=== PATIENT | female | born 2000 | race Caucasian/White ===

== ENCOUNTER → 2019-04-21 | Outpatient (CLI) | payer MEDICAID ==
--- NOTE | 2019-04-21 13:49 | Diagnostic Imaging Report ---
INDICATION: RIGHT ANKLE PAIN COMPARISON: None. FINDINGS: Three views of the right ankle were obtained. There is no acute fracture or dislocation. No focal osseous lesions are seen. The surrounding soft tissue structures are unremarkable. There are no radiopaque foreign bodies. IMPRESSION: 1. No acute fracture or dislocation in the right ankle. Dictated by: Dictated on workstation # [id number]
== END ==
LOC: RAD FS 13:32
PROVIDERS: ATTEND Nurse Practitioner
DX: M25.571 Pain in right ankle and joints of right foot (principal)
CPT/HCPCS: 73610

== ENCOUNTER 2019-07-24 15:31 | Emergency (ER) | payer MEDICAID ==
[~2019-07-24] VITALS: Ht 167.7 cm; Wt 52.3 kg
[2019-07-24] MEDS ORDERED: LACTATED RINGERS 1,000 ML IV ONE (15:41)
[2019-07-24] MEDS ORDERED: FAMOTIDINE 20 MG (PEPCID) TABLET PO STA (15:41)
[2019-07-24] MEDS ORDERED: ANTACID SUSP 30 ML UDC (MYLANTA) PO ONE (15:45)
[2019-07-24] MEDS ORDERED: LIDOCAINE 2% VISCOUS 15 ML UDC PO ONE (15:45)
--- NOTE | 2019-07-24 15:47 | ED Abdominal Pain ---
General Chief Complaint: Abdominal/GI Problems Stated Complaint: STOMACH PAIN Source of Information: Patient, Family Exam Limitations: No Limitations History of Present Illness Date Seen by Provider: Jul 24, 2019 Time Seen by Provider: 15:32 Initial Comments The patient presents to ER by private conveyance with her family and chief com plaint of abdominal pain starting last night while she was laying down to sleep around 10:00. She did not anything strenuous nor had any trauma to her abdomen. She has been coughing quite a bit and a few weeks ago was started on some albuterol and other cough medicines outpatient. She's not having any nausea fevers or chills. No diarrhea and she had a bowel movement yesterday was normal. She says it center is mostly around her umbilicus and is sharp, 10 out of 10 feels like somebody shot her with a gun. She is not having any painful urination or discharge. She has had her gallbladder and appendix out in the past. She has an IUD in place and no longer has periods. No other significant medical or surgical history. She took 400 mg of ibuprofen about 5 hours ago without any significant relief of symptoms. She has not tried anything else. Allergies and Home Medications Allergies Coded Allergies: hydrocodone (Verified Allergy, Unknown, 07/24/19) Home Medications Benzonatate 100 Mg Capsule, 100 MG PO Q6H PRN for COUGH Prescribed by: FRANCIS ALEXANDRE on 07/24/19 7287 Patient Home Medication List Home Medication List Reviewed: Yes Review of Systems Review of Systems Constitutional: No chills, No diaphoresis EENTM: No Blurred Vision, No Double Vision Respiratory: Denies Cough, Denies Shortness of Air Cardiovascular: Denies Chest Pain, Denies Edema Gastrointestinal: See HPI; Denies Abdomen Distended; Abdominal Pain; Denies Constipated, Denies Diarrhea, Denies Nausea Genitourinary: Denies Burning, Denies Discharge Musculoskeletal: No back pain, No joint pain Skin: No pruritus, No rash Psychiatric/Neurological: Denies Headache, Denies Numbness All Other Systems Reviewed Negative Unless Noted: Yes Past Sspxxdh-Klotam-Zazacb Hx Patient Social History Alcohol Use: Denies Use Recreational Drug Use: No Smoking Status: Never a Smoker Physical Exam Vital Signs Vital Signs - First Documented 07/24/19 15:35 Temp 37.2 Pulse 90 Resp 14 B/P (MAP) 131/73 (92) Pulse Ox 98 O2 Delivery Room Air Capillary Refill : Height/Weight/BMI Height: '" Weight: lbs. oz. kg; BMI Method: General Appearance: WD/WN, mild distress HEENT: PERRL/EOMI, pharynx normal Neck: full range of motion, normal inspection Respiratory: lungs clear, normal breath sounds, no respiratory distress, no accessory muscle use Cardiovascular: normal peripheral pulses, regular rate, rhythm Gastrointestinal: normal bowel sounds, guarding, tenderness (all 4 quadrants) Extremities: normal inspection, normal capillary refill Neurologic/Psychiatric: alert, oriented x 3 Skin: normal color, warm/dry Progress/Results/Core Measures Results/Orders Lab Results Laboratory Tests Test 07/24/19 15:35 07/24/19 15:40 Range/Units Urine Color YELLOW Urine Clarity CLEAR Urine pH 7.5 5-9 Urine Specific [place] 1.015 L 1.016-1.022 Urine Protein NEGATIVE NEGATIVE Urine Glucose (UA) NEGATIVE NEGATIVE Urine Ketones NEGATIVE NEGATIVE Urine Nitrite NEGATIVE NEGATIVE Urine Bilirubin NEGATIVE NEGATIVE Urine Urobilinogen 1.0 < = 1.0 MG/DL Urine Leukocyte Esterase NEGATIVE NEGATIVE Urine RBC (Auto) NEGATIVE NEGATIVE Urine RBC NONE /HPF Urine WBC 0-2 /HPF Urine Squamous Epithelial Cells 5-10 /HPF Urine Crystals NONE /LPF Urine Bacteria NEGATIVE /HPF Urine Casts NONE /LPF Urine Mucus NEGATIVE /LPF Urine Culture Indicated NO White Blood Count 11.2 H 4.3-11.0 10^3/uL Red Blood Count 4.45 4.35-5.85 10^6/uL Hemoglobin 13.9 11.5-16.0 G/DL Hematocrit 41 35-52 % Mean Corpuscular Volume 92 80-99 FL Mean Corpuscular Hemoglobin 31 25-34 PG Mean Corpuscular Hemoglobin Concent 34 32-36 G/DL Red Cell Distribution Width 11.8 10.0-14.5 % Platelet Count 235 130-400 10^3/uL Mean Platelet Volume 11.6 H 7.4-10.4 FL Neutrophils (%) (Auto) 71 42-75 % Lymphocytes (%) (Auto) 19 12-44 % Monocytes (%) (Auto) 9 0-12 % Eosinophils (%) (Auto) 1 0-10 % Basophils (%) (Auto) 0 0-10 % Neutrophils # (Auto) 8.0 H 1.8-7.8 X 10^3 Lymphocytes # (Auto) 2.1 1.0-4.0 X 10^3 Monocytes # (Auto) 1.0 0.0-1.0 X 10^3 Eosinophils # (Auto) 0.1 0.0-0.3 10^3/uL Basophils # (Auto) 0.0 0.0-0.1 10^3/uL Sodium Level 139 135-145 MMOL/L Potassium Level 3.7 3.6-5.0 MMOL/L Chloride Level 101 98-107 MMOL/L Carbon Dioxide Level 28 21-32 MMOL/L Anion Gap 10 5-14 MMOL/L Blood Urea Nitrogen 10 7-18 MG/DL Creatinine 0.84 0.60-1.30 MG/DL Estimat Glomerular Filtration Rate > 60 BUN/Creatinine Ratio 12 Glucose Level 86 70-105 MG/DL Calcium Level 9.3 8.5-10.1 MG/DL Corrected Calcium 8.5-10.1 MG/DL Total Bilirubin 0.7 0.1-1.0 MG/DL Aspartate Amino Transf (AST/SGOT) 16 5-34 U/L Alanine Aminotransferase (ALT/SGPT) 12 0-55 U/L Alkaline Phosphatase 79 40-136 U/L Total Protein 8.1 6.4-8.2 GM/DL Albumin 4.6 H 3.2-4.5 GM/DL Lipase 30 8-78 U/L My Orders Orders - FRANCIS ALEXANDRE Ua Culture If Indicated (07/24/19 15:32) Urine Bedside (07/24/19 15:32) Lidocaine 2% Viscous 15 Ml (Xylocaine Vi (07/24/19 15:45) Famotidine Tablet (Pepcid Tablet) (07/24/19 15:41) Antacid Suspension (Mylanta Suspension (07/24/19 15:45) Ed Iv/Invasive Line Start (07/24/19 15:41) Lactated Ringers (Lr 1000 Ml Iv Solution (07/24/19 15:41) Cbc With Automated Diff (07/24/19 15:41) Comprehensive Metabolic Panel (07/24/19 15:41) Lipase (07/24/19 15:41) Ketorolac Injection (Toradol Injection) (07/24/19 16:30) Chest Pa/Lat (2 View) (07/24/19 16:29) Medications Given in ED Current Medications Medications Dose Ordered Sig/Venkata Route Start Time Stop Time Status Last Admin Dose Admin Al Hydrox/Mg Hydrox/Simethicone 30 ml ONCE ONCE PO 07/24/19 15:45 07/24/19 15:46 DC 07/24/19 15:49 30 ML Ketorolac Tromethamine 30 mg ONCE ONCE IVP 07/24/19 16:30 07/24/19 16:31 DC 07/24/19 16:26 30 MG Lactated Ringer's 1,000 ml @ 0 mls/hr Q0M ONCE IV 07/24/19 15:41 07/24/19 15:43 DC 07/24/19 15:50 999 MLS/HR Lidocaine HCl 15 ml ONCE ONCE PO 07/24/19 15:45 07/24/19 15:46 DC 07/24/19 15:49 15 ML Vital Signs/I&O 07/24/19 07/24/19 07/24/19 15:35 16:26 17:38 Temp 37.2 37.2 37.1 Pulse 90 87 Resp 14 16 B/P (MAP) 131/73 (92) 97/64 (92) Pulse Ox 98 97 O2 Delivery Room Air Room Air Progress Progress Note #1: Time: 15:45 Progress Note Gastroenteritis versus colitis versus pancreatitis versus gastritis versus GERD versus abdominal wall strain. We'll start with a GI cocktail get some basic labs to include a lipase and urinalysis and if the GI cocktail does not work we'll trial Toradol. She has aseptic vital signs within acutely tender abdomen all 4 quadrants so if we cannot control her pain with a GI cocktail we would consider doing CT imaging with IV contrast. Therefore 1 L of IV fluids. Progress Note #2: Time: 16:23 Progress Note GI cocktail made no difference in her pain. We'll try Toradol. She has a nonsignificant white count. Abdominal wall pain seems more likely at this point with her aseptic vital signs and frequent loose cough. Progress Note #3: Time: 17:05 Progress Note Patient's pain significantly improved after Toradol. Suspect abdominal wall pain. We'll provide her with some Tessalon Perles and encourage naproxen/ibuprofen. Diagnostic Imaging Diagonstic Imaging: Xray Plain Films/CT/US/NM/MRI: chest (2v) Comments No acute cardiopulmonary processes noted. NAME: JENNY SCHRADER [facility] REC#: [id number] PT STATUS: REG ER : 2000 PHYSICIAN: FRANCIS ALEXANDRE MD ADMIT DATE: 07/24/19/ER FS Draft POSDate of Exam:07/24/19 CHEST PA/LAT (2 VIEW) INDICATION: Abdominal pain, cough. COMPARISON: None available. TECHNIQUE: Two radiographs of the chest dated July 24, 2019. FINDINGS: The cardiac silhouette and pulmonary vasculature are within normal limits. The lungs are clear. No pleural effusion. No pneumothorax. Surgical clips within the right upper quadrant of the abdomen. No acute osseous abnormality. IMPRESSION: No acute cardiopulmonary abnormality. Dictated on workstation # [id number] Dict: 07/24/19 1650 Trans: 07/24/19 165 [id number] Interpreted by: ANIRUDH CH MD Electronically signed by: Reviewed: Reviewed by Me Departure Impression Primary Impression: Abdominal wall pain Additional Impression: Bronchitis Disposition: 01 HOME, SELF-CARE Condition: Stable Departure-Patient Inst. Decision time for Depature: 17:10 Referrals: NO,LOCAL PHYSICIAN (PCP/Family) Primary Care Physician Patient Instructions: Acute Abdomen (Belly Pain), Adult (DC), Acute Bronchitis Add. Discharge Instructions: Drink plenty of fluids. Tylenol 1000 mg every 8 hours as needed for pain. Ibuprofen 800 mg every 8 hours as needed for pain. Heating pads can be helpful. Tessalon Perles 1 capsule every 6 hours as needed for cough. All discharge instructions reviewed with patient and/or family. Voiced understanding. Scripts Benzonatate (TESSALON PERLES) 100 Mg Capsule 100 MG PO Q6H PRN for COUGH, #20 CAP 0 Refills Prov: FRANCIS ALEXANDRE 07/24/19 FRANCIS ALEXANDRE Jul 24, 2019 15:47 POS
--- NOTE | 2019-07-24 16:15 | NUR ---
Discussed with Dr Javier patient has been displaying a loose near wet sounding cough intermittantly and reports she has had bronchitis since before Thanksgiving. Pt describes yes it hurts in abd from coughing. plans pain medication and will CXR
[2019-07-24 16:18] LABS: CLARITY,URINE CLEAR; COLOR,URINE YELLOW; GLUCOSE, URINE (UA) NEGATIVE (NEGATIVE); KETONES,URINE NEGATIVE (NEGATIVE); PH,URINE 7.5 (5-9); PROTEIN,URINE NEGATIVE (NEGATIVE)
[2019-07-24 16:19] LABS: BACTERIA,URINE NEGATIVE /HPF; BILIRUBIN,URINE NEGATIVE (NEGATIVE); LEUKOCYTE ESTERASE ,URINE NEGATIVE (NEGATIVE); NITRITE,URINE NEGATIVE (NEGATIVE); WBC,URINE 0-2 /HPF
[2019-07-24 16:20] LABS: BASOPHILS % (AUTO) 0 % (0-10); EOSINOPHILS # (AUTO) 0.1 10^3/uL (0.0-0.3); EOSINOPHILS % (AUTO) 1 % (0-10); HEMATOCRIT 41 % (35-52); HEMOGLOBIN 13.9 G/DL (11.5-16.0); LYMPHOCYTES # (AUTO) 2.1 X 10^3 (1.0-4.0); LYMPHOCYTES % (AUTO) 19 % (12-44); MEAN CORPUSCULAR HEMOGLOBIN 31 PG (25-34); MEAN CORPUSCULAR HGB CONC 34 G/DL (32-36); MEAN CORPUSCULAR VOLUME 92 FL (80-99); MEAN PLATELET VOLUME 11.6 FL (7.4-10.4); MONOCYTES % (AUTO) 9 % (0-12); NEUTROPHILS % (AUTO) 71 % (42-75); PLATELET COUNT 235 10^3/uL (130-400); RED CELL DISTRIBUTION WIDTH 11.8 % (10.0-14.5); WHITE BLOOD COUNT 11.2 10^3/uL (4.3-11.0)
[2019-07-24 16:21] LABS: BILIRUBIN,TOTAL 0.7 MG/DL (0.1-1.0); BUN/CREATININE RATIO 12; CALCIUM 9.3 MG/DL (8.5-10.1); CARBON DIOXIDE 28 MMOL/L (21-32); CHLORIDE 101 MMOL/L (98-107); CREATININE SERUM 0.84 MG/DL (0.60-1.30); GFR ESTIMATED > 60; GLUCOSE 86 MG/DL (70-105); POTASSIUM 3.7 MMOL/L (3.6-5.0); SODIUM 139 MMOL/L (135-145)
[2019-07-24 16:22] LABS: ALANINE AMINOTRANSFERASE 12 U/L (0-55); ALBUMIN 4.6 GM/DL (3.2-4.5); ALKALINE PHOSPHATASE 79 U/L (40-136); LIPASE 30 U/L (8-78); TOTAL PROTEIN 8.1 GM/DL (6.4-8.2)
[2019-07-24] MEDS ORDERED: KETOROLAC 30 MG/ML VIAL IVP ONE (16:30)
[2019-07-24] MEDS ORDERED: BENZ100C18 PO (16:47)
--- NOTE | 2019-07-24 16:54 | Diagnostic Imaging Report ---
INDICATION: Abdominal pain, cough. COMPARISON: None available. TECHNIQUE: Two radiographs of the chest dated July 24, 2019. FINDINGS: The cardiac silhouette and pulmonary vasculature are within normal limits. The lungs are clear. No pleural effusion. No pneumothorax. Surgical clips within the right upper quadrant of the abdomen. No acute osseous abnormality. IMPRESSION: No acute cardiopulmonary abnormality. Dictated by: Dictated on workstation # [id number]
[2019-07-24 17:38] VITALS: BP 97/64
--- OUTSIDE RECORDS SUMMARY | 2019-08-18 21:13 | XMS REPORT | Continuity of Care Document ---
Author Organization Unknown Address Unknown Phone Unavailable Allergies Active Description Code Type Severity Reaction Onset Reported/Identified Relationship to Patient Clinical Status Yes hydrocodone [id number] Drug Aller gy Unknown N/A 07/24/2019 Yes No Known Drug Allergies [id number] Drug Allergy Unknown N/A 07/24/2019 Medications There is no data. Problems Date Dx Coded Attending Type Code Diagnosis Diagnosed By 07/27/2019 FRANCIS ALEXANDRE MD, Ot J40 BRONCHITIS, NOT SPECIFIED ACUTE OR CH 07/27/2019 FRANCIS ALEXANDRE MD Ot R10. 33 PERIUMBILICAL PAIN 07/27/2019 FRANCIS ALEXANDRE MD Ot Z88. 5 ALLERGY STATUS TO NARCOTIC AGENT STATUS 07/27/2019 FRANCIS ALEXANDRE MD Ot Z90. 49 ACQUIRED ABSENCE OF OTHER SPECIFIED PART Procedures There is no data. Results Test Result Range HCG, QUANTITATIVE - 01/24/19 12:54 HCG, TOTAL, QN <2 mIU/mL NRG Complete urinalysis with reflex to cultu re - 07/24/19 15:35 Urine color determination YELLOW NRG Urine clarity determination CLEAR NR G Urine pH measurement by test strip 7.5 5-9 Specific gravity of urine by test strip 1.015 1.016-1.022 Urine protein assay by test strip, semi-quantitative NEGATIVE NEGATIVE Urine glucose detection by automated test strip NE GATIVE NEGATIVE Erythrocytes detection in urine sediment by light micr oscopy NEGATIVE NEGATIVE Urine ketones detection by automated test strip NE GATIVE NEGATIVE Urine nitrite detection by test strip NEGATIVE NEGATIVE Urine total bilirubin detection by test strip NEGA TIVE NEGATIVE Urine urobilinogen measurement by automated test strip (mass/volume) 1.0 mg/dL < = 1.0 Urine leukocyte esterase detection by dipstick NEG ATIVE NEGATIVE Automated urine sediment erythrocyte cou nt by microscopy (number/high power field) NONE NRG Automated urine sediment leukocyte count by microscopy (number/high power field) [HPF] NRG Bacteria detection in urine sediment by light microsco py NEGATIVE NRG Squamous epithelial cells detection in u rine sediment by light microscopy 5-10 NRG Crystals detection in urine sediment by light microsco py NONE NRG Casts detection in urine sediment by light microscopy NONE NRG Mucus detection in urine sediment by light microscopy NEGATIVE NRG Complete urinalysis with reflex to culture NO NRG Complete blood count (CBC) with automate d white blood cell (WBC) differential - 07/24/19 15:40 Blood leukocytes automated count (number/volume) 11.2 10*3/uL 4.3-11.0 Blood erythrocytes automated count (number/volume) 4.45 10*6/uL 4.35-5.85 Venous blood hemoglobin measurement (mass/volume) 13.9 g/dL 11.5-16.0 Blood hematocrit (volume fraction) 41 % 35-52 Automated erythrocyte mean corpuscular volume 92 [ foz_us] 80-99 Automated erythrocyte mean corpuscular h emoglobin (mass per erythrocyte) 31 pg 25-34 Automated erythrocyte mean corpuscular h emoglobin concentration measurement (mass/volume) 34 g/dL 32-36 Automated erythrocyte distribution width ratio 11. 8 % 10.0- 14.5 Automated blood platelet count (count/volume) 235 10*3/uL 130-400 Automated blood platelet mean volume measurement 11.6 [foz_us] 7.4-10.4 Automated blood neutrophils/100 leukocytes 71 % 42-75 Automated blood lymphocytes/100 leukocytes 19 % 12-44 Blood monocytes/100 leukocytes 9 % 0-12 Automated blood eosinophils/100 leukocytes 1 % 0-10 Automated blood basophils/100 leukocytes 0 % 0-10 Blood neutrophils automated count (number/volume) 8.0 10*3 1.8-7.8 Blood lymphocytes automated count (number/volume) 2.1 10*3 1.0-4.0 Blood monocytes automated count (number/volume) 1. 0 10*3 0.0-1.0 Automated eosinophil count 0.1 10*3/uL 0 .0-0.3 Automated blood basophil count (count/volume) 0.0 10*3/uL 0.0-0.1 Comprehensive metabolic panel - 07/24/19 15:40 Serum or plasma sodium measurement (moles/volume) 139 mmol/L 135-145 Serum or plasma potassium measurement (moles/volume) 3.7 mmol/L 3.6-5.0 Serum or plasma chloride measurement (moles/volume) 101 mmol/L 98-107 Carbon dioxide 28 mmol/L 21-32 Serum or plasma anion gap determination (moles/volume) 10 mmol/L 5-14 Serum or plasma urea nitrogen measurement (mass/volume ) 10 mg/dL 7-18 Serum or plasma creatinine measurement (mass/volume) 0.84 mg/dL 0.60-1.30 Serum or plasma urea nitrogen/creatinine mass ratio 12 NRG Serum or plasma creatinine measurement w ith calculation of estimated glomerular filtration rate > NRG Serum or plasma glucose measurement (mass/volume) 86 mg/dL 70-105 Serum or plasma calcium measurement (mass/volume) 9.3 mg/dL 8.5-10.1 Serum or plasma total bilirubin measurement (mass/volu me) 0.7 mg/dL 0.1-1.0 Serum or plasma alkaline phosphatase martha surement (enzymatic activity/volume) 79 U/L 40-136 Serum or plasma aspartate aminotransfera se measurement (enzymatic activity/volume) 16 U/L 5-34 Serum or plasma alanine aminotransferase measurement (enzymatic activity/volume) 12 U/L 0-55 Serum or plasma protein measurement (mass/volume) 8.1 g/dL 6.4-8.2 Serum or plasma albumin measurement (mass/volume) 4.6 g/dL 3.2-4.5 Lipase - 07/24/19 15:40 Lipase 30 U/L 8-78 Encounters ACCT No. Visit Date/Time Discharge Status Pt. Type Provider Facility Loc./Unit Complaint [id number] 08/02/2019 13:00:00 08/02/2019 23:59: 59 CLS Outpatient DEWEY LOPEZ [facility] [id number] 01/24/2019 12:45:00 Document Registration [id number] 07/24/2019 15:32:00 17:38:00 DIS Outpatient FRANCIS ALEXANDRE MD [facility] ER FS STOMACH PAIN [id number] 04/21/2019 13:32:00 019 23:59:59 CLS Outpatient GOKUL BELLO APRN [facility] RAD FS [phone]
== END 2019-07-24 17:38 | disposition home or self-care (01) ==
LOC: EDUNIT# 15:31 → ER FS 15:32
DX: R10.33 Periumbilical pain (principal); J40 Bronchitis, not specified as acute or chronic; Z90.49 Acquired absence of other specified parts of digestive tract; Z88.5 Allergy status to narcotic agent
CPT/HCPCS: 36415; 71046; 80053; 81000; 83690; 84703; 85025; 96374

== ENCOUNTER → 2019-10-10 | Outpatient (CLI) | payer MEDICAID ==
[~2019-10-10] MED LIST: BENZ100C18 PO
--- NOTE | 2019-10-10 14:37 | Diagnostic Imaging Report ---
INDICATION: Left-sided flank pain. TIME OF EXAM: 01:32 p.m. FINDINGS: Bowel gas pattern is nonobstructive. There is moderate stool in the right colon and transverse colon. There are surgical clips in the right lower quadrant as well as right upper quadrant. IUD in the midline of the pelvis is seen. No definite radiopaque urinary tract calculi are seen. IMPRESSION: No acute abnormality is detected. Dictated by: Dictated on workstation # [id number]
== END ==
LOC: RAD FS 13:23
PROVIDERS: ATTEND Nurse Practitioner Family
DX: R11.10 Vomiting, unspecified (principal); R53.83 Other fatigue; R10.9 Unspecified abdominal pain
CPT/HCPCS: 74018

== ENCOUNTER → 2020-03-01 | Outpatient (CLI) | payer MEDICAID ==
--- NOTE | 2020-03-01 13:11 | Diagnostic Imaging Report ---
INDICATION: Right-sided flank pain. Back pain. COMPARISON: 10/10/2019. FINDINGS: Two frontal radiographic views of the abdomen were obtained. Small bowel loops are nondistended. There is no large collection of free intraperitoneal air. Mild colonic air and stool is noted. Indwelling IUD is also present. No unexpected radiopaque foreign bodies are seen. IMPRESSION: 1. Nonobstructed small bowel gas pattern. Dictated by: Dictated on workstation # [id number]
== END ==
LOC: RAD FS 11:57
PROVIDERS: ATTEND Nurse Practitioner Family
DX: R10.9 Unspecified abdominal pain (principal); M54.9 Dorsalgia, unspecified; Z97.5 Presence of (intrauterine) contraceptive device
CPT/HCPCS: 74018

== ENCOUNTER 2021-01-18 01:57 | Emergency (ER) | payer MEDICAID ==
[2021-01-18 01:57] VITALS: BP 120/82
[2021-01-18] MEDS ORDERED: ACETAMINOPHEN 500 MG TAB (TYLENOL) PO STA (02:05)
[2021-01-18] MEDS ORDERED: NS IV 1000 ML 1,000 ML IV STA (02:05)
--- NOTE | 2021-01-18 02:12 | ED General ---
General Chief Complaint: Back Problems Stated Complaint: BILATERAL FLANK PAIN Nursing Triage Note: Pt brought in by ems complaining of bilateral flank pain. Pt states that she is 4 weeks Nursing Sepsis Screen: No Definite Risk Source of Information: Patient History of Present Illness Date Seen by Provider: Jan 18, 2021 Time Seen by Provider: 01:54 Initial Comments 21-year-old female presenting with EMS having complaints of low back pain. She states that she is approximately 4 weeks but cannot remember her last menstrual period. she has no vaginal bleeding or discharge. She has no diarrhea, nausea, vomiting, fever, chills. She has had pain in her back like this with her last 2 years ago and it improved when she was given IV fluids and Tylenol. She states she has tried speaking with nurse practitioner Karthik and was told to take Tylenol for her symptoms. She reports not having access to Tylenol and not having a car or vehicle to go by Tylenol. Tonight she felt her symptoms were severe enough after a week of being present that she call ed 911 and had EMS transport her and her significant other to the emergency department. Timing/Duration: 1 Week, Other (Waxing and waning in intensity over the last week) Severity: Severe Modifying Factors: worse with Movement Associated Systoms: No Chest Pain, No Cough, No Diaphoresis, No Fever/Chills, No Headaches, No Loss of Appetite, No Malaise, No Nausea/Vomiting, No Rash, No Seizure, No Shortness of Air, No Syncope, No Weakness Allergies and Home Medications Allergies Coded Allergies: hydrocodone (Verified Allergy, Unknown, 07/24/19) Home Medications Benzonatate 100 Mg Capsule, 100 MG PO Q6H PRN for COUGH Prescribed by: FRANCIS ALEXANDRE on 07/24/19 1647 Cephalexin 500 Mg Capsule, 500 MG PO TID Prescribed by: MITESH DEAN on 01/18/21 0320 Patient Home Medication List Home Medication List Reviewed: Yes Review of Systems Review of Systems Constitutional: No chills, No fever EENTM: no symptoms reported Respiratory: no symptoms reported Cardiovascular: no symptoms reported Gastrointestinal: see HPI Genitourinary: No discharge, No pain : Yes Musculoskeletal: back pain (low back pain) Skin: No rash Psychiatric/Neurological: Denies Numbness, Denies Paresthesia Hematologic/Lymphatic: Denies Easy Bleeding, Denies Easy Bruising Past Bpnozuv-Ppsqsp-Cvjldw Hx Past Med/Social Hx: Reviewed Nursing Past Med/Soc Hx Patient Social History Alcohol Use: Denies Use Recent Infectious Disease Expo: No Recent Hopitalizations: No Immunizations Up To Date PED Vaccines UTD: Yes Date of Influenza Vaccine: Apr 30, 2019 Seasonal Allergies Seasonal Allergies: No Past Medical History Surgeries: Yes Appendectomy, Gallbladder Respiratory: No Cardiac: No Neurological: No Genitourinary: No Gastrointestinal: No Musculoskeletal: No Endocrine: No HEENT: No Cancer: No Psychosocial: No Integumentary: No Blood Disorders: No Physical Exam Vital Signs Vital Signs - First Documented 01/18/21 01:57 Temp 37.3 Pulse 97 Resp 16 B/P (MAP) 120/82 (95) Pulse Ox 98 O2 Delivery Room Air Capillary Refill : Less Than 3 Seconds Height, Weight, BMI Height: '" Weight: lbs. oz. 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, 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 as 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 Skin: Normal Color, Warm/Dry Progress/Results/Core Measures Suspected Sepsis Recent Fever Within 48 Hours: No Infection Criteria Present: None New/Unexplained Altered Menta: No Sepsis Screen: No Definite Risk SIRS Temperature: Pulse: 97 Respiratory Rate: 16 Laboratory Tests 01/18/21 02:20: White Blood Count 12.0H Blood Pressure 120 /82 Mean: 95 Laboratory Tests 01/18/21 02:20: Creatinine 0.85, Platelet Count 237, Total Bilirubin 0.5 Results/Orders Lab Results Laboratory Tests Test 01/18/21 02:10 01/18/21 02:20 Range/Units Urine Color YELLOW Urine Clarity CLEAR Urine pH 6.5 5-9 Urine Specific [place] 1.020 1.016-1.022 Urine Protein TRACE H NEGATIVE Urine Glucose (UA) NEGATIVE NEGATIVE Urine Ketones NEGATIVE NEGATIVE Urine Nitrite NEGATIVE NEGATIVE Urine Bilirubin NEGATIVE NEGATIVE Urine Urobilinogen 0.2 < = 1.0 MG/DL Urine Leukocyte Esterase 1+ H NEGATIVE Urine RBC (Auto) TRACE H NEGATIVE Urine RBC RARE /HPF Urine WBC 25-50 H /HPF Urine Squamous Epithelial Cells RARE /HPF Urine Crystals NONE /LPF Urine Bacteria FEW H /HPF Urine Casts NONE /LPF Urine Mucus MODERATE H /LPF Urine Culture Indicated YES White Blood Count 12.0 H 4.3-11.0 10^3/uL Red Blood Count 4.31 L 4.35-5.85 10^6/uL Hemoglobin 13.6 11.5-16.0 G/DL Hematocrit 40 35-52 % Mean Corpuscular Volume 93 80-99 FL Mean Corpuscular Hemoglobin 32 25-34 PG Mean Corpuscular Hemoglobin Concent 34 32-36 G/DL Red Cell Distribution Width 11.8 10.0-14.5 % Platelet Count 237 130-400 10^3/uL Mean Platelet Volume 11.2 H 7.4-10.4 FL Immature Granulocyte % (Auto) 0 % Neutrophils (%) (Auto) 73 42-75 % Lymphocytes (%) (Auto) 17 12-44 % Monocytes (%) (Auto) 9 0-12 % Eosinophils (%) (Auto) 1 0-10 % Basophils (%) (Auto) 0 0-10 % Neutrophils # (Auto) 8.7 H 1.8-7.8 X 10^3 Lymphocytes # (Auto) 2.0 1.0-4.0 X 10^3 Monocytes # (Auto) 1.1 H 0.0-1.0 X 10^3 Eosinophils # (Auto) 0.1 0.0-0.3 10^3/uL Basophils # (Auto) 0.0 0.0-0.1 10^3/uL Immature Granulocyte # (Auto) 0.1 0.0-0.1 10^3/uL Percent Immature Platelet Fraction 6.3 0.0-7.6 % Sodium Level 136 135-145 MMOL/L Potassium Level 3.9 3.6-5.0 MMOL/L Chloride Level 98 98-107 MMOL/L Carbon Dioxide Level 26 21-32 MMOL/L Anion Gap 12 5-14 MMOL/L Blood Urea Nitrogen 12 7-18 MG/DL Creatinine 0.85 0.60-1.30 MG/DL Estimat Glomerular Filtration Rate > 60 BUN/Creatinine Ratio 14 Glucose Level 110 H 70-105 MG/DL Calcium Level 9.2 8.5-10.1 MG/DL Corrected Calcium 9.0 8.5-10.1 MG/DL Total Bilirubin 0.5 0.1-1.0 MG/DL Aspartate Amino Transf (AST/SGOT) 11 5-34 U/L Alanine Aminotransferase (ALT/SGPT) 8 0-55 U/L Alkaline Phosphatase 72 40-136 U/L Total Protein 7.6 6.4-8.2 GM/DL Albumin 4.2 3.2-4.5 GM/DL Human Chorionic Gonadotropin, Quant 2436 H <5 MIU/ML My Orders Orders - MITESH DEAN MD Comprehensive Metabolic Panel (01/18/21 02:05) Ua Culture If Indicated (01/18/21 02:05) Ed Iv/Invasive Line Start (01/18/21 02:05) Cbc With Automated Diff (01/18/21 02:05) Hcg,Quantitative (01/18/21 02:05) Ns Iv 1000 Ml (Sodium Chloride 0.9%) (01/18/21 02:05) Acetaminophen Tablet (Tylenol Tablet) (01/18/21 02:05) Urine Culture (01/18/21 02:10) Ceftriaxone For Iv Use (Rocephin For I (01/18/21 03:16) Vital Signs/I&O 01/18/21 01:57 Temp 37.3 Pulse 97 Resp 16 B/P (MAP) 120/82 (95) Pulse Ox 98 O2 Delivery Room Air Capillary Refill : Less Than 3 Seconds Blood Pressure Mean: 95 Progress Note #1: Progress Note check basic labs, give IVF for hydration, Acetaminophen for pain. Differential diagnosis includes dehydration, urinary tract infection, round ligament pain with , musculoskeletal pain, muscle strain Progress Note #2: Progress Note labs show mild elevation of WBC. Chemistry without acute significant abnormality. Quantitative HCG 2436. UA shows infection with specific gravity of 1.020. Treat with rocephin here and keflex at home. Pt reports improved symptoms with treatment in the ED. Counseled on follow up and return precautions. Departure Impression Primary Impression: Low back pain during in first trimester Additional Impressions: , incidental UTI (urinary tract infection) in in first trimester Disposition: 01 HOME, SELF-CARE Condition: Stable Departure-Patient Inst. Decision time for Depature: 03:20 Referrals: [facility] (PCP) Primary Care Physician JOLANTA CAMPBELL APRN (Family) Primary Care Physician Patient Instructions: Stomach Pain in Early , Urinary Tract Infections in Add. Discharge Instructions: Stay well hydrated and drink plenty of water. Take antibiotic to treat for urine infection. Acetaminophen for pain. Check with your provider for your about continued symptoms/concerns. All discharge instructions reviewed with patient and/or family. Voiced understanding. Scripts Cephalexin (Cephalexin) 500 Mg Capsule 500 MG PO TID for UTI for 7 Days, #21 CAP 0 Refills Prov: MITESH DEAN MD 01/18/21 MITESH DEAN MD Jan 18, 2021 02:12
[2021-01-18 02:40] LABS: HEMATOCRIT 40 % (35-52); HEMOGLOBIN 13.6 G/DL (11.5-16.0); MEAN CORPUSCULAR HEMOGLOBIN 32 PG (25-34); MEAN CORPUSCULAR HGB CONC 34 G/DL (32-36); MEAN CORPUSCULAR VOLUME 93 FL (80-99); MEAN PLATELET VOLUME 11.2 FL (7.4-10.4); PLATELET COUNT 237 10^3/uL (130-400)
[2021-01-18 02:41] LABS: BASOPHILS % (AUTO) 0 % (0-10); EOSINOPHILS # (AUTO) 0.1 10^3/uL (0.0-0.3); EOSINOPHILS % (AUTO) 1 % (0-10); LYMPHOCYTES % (AUTO) 17 % (12-44); MONOCYTES # (AUTO) 1.1 X 10^3 (0.0-1.0); MONOCYTES % (AUTO) 9 % (0-12); NEUTROPHILS # (AUTO) 8.7 X 10^3 (1.8-7.8); NEUTROPHILS % (AUTO) 73 % (42-75)
[2021-01-18 02:51] LABS: CARBON DIOXIDE 26 MMOL/L (21-32); CHLORIDE 98 MMOL/L (98-107); POTASSIUM 3.9 MMOL/L (3.6-5.0); SODIUM 136 MMOL/L (135-145)
[2021-01-18 02:52] LABS: ALANINE AMINOTRANSFERASE 8 U/L (0-55); ALBUMIN 4.2 GM/DL (3.2-4.5); ALKALINE PHOSPHATASE 72 U/L (40-136); BILIRUBIN,TOTAL 0.5 MG/DL (0.1-1.0); BUN/CREATININE RATIO 14; CALCIUM 9.2 MG/DL (8.5-10.1); CREATININE SERUM 0.85 MG/DL (0.60-1.30); GFR ESTIMATED > 60; GLUCOSE 110 MG/DL (70-105); TOTAL PROTEIN 7.6 GM/DL (6.4-8.2)
[2021-01-18 03:06] LABS: CLARITY,URINE CLEAR; COLOR,URINE YELLOW; PH,URINE 6.5 (5-9)
[2021-01-18 03:07] LABS: BILIRUBIN,URINE NEGATIVE (NEGATIVE); GLUCOSE, URINE (UA) NEGATIVE (NEGATIVE); KETONES,URINE NEGATIVE (NEGATIVE); LEUKOCYTE ESTERASE ,URINE 1+ (NEGATIVE); NITRITE,URINE NEGATIVE (NEGATIVE); PROTEIN,URINE TRACE (NEGATIVE); RBC,URINE RARE /HPF
[2021-01-18 03:08] LABS: BACTERIA,URINE FEW /HPF; SQUAMOUS EPITHELIAL CELL,UR RARE /HPF; WBC,URINE 25-50 /HPF
[2021-01-18] MEDS ORDERED: cefTRIAXone FOR IV USE 1,000 MG in WATER (STERILE) FOR INJECTION 10 ML IV STA (03:16)
[2021-01-18] MEDS ORDERED: CEPH500C PO (03:20)
== END 2021-01-18 03:28 | disposition home or self-care (01) ==
LOC: ER FS 01:57
DX: O23.41 Unspecified infection of urinary tract in pregnancy, first trimester (principal); Z3A.01 Less than 8 weeks gestation of pregnancy
CPT/HCPCS: 36415; 80053; 81000; 84702; 85025; 87088

== ENCOUNTER 2021-03-11 12:34 | Emergency (ER) | payer MEDICAID ==
[~2021-03-11] VITALS: Ht 160 cm; Wt 61.3 kg
[~2021-03-11 12:34] MED LIST changes: +CEPH500C PO
[2021-03-11] MEDS ORDERED: ANTACID SUSP 30 ML UDC (MYLANTA) PO ONE (12:45)
--- NOTE | 2021-03-11 12:59 | ED Chest Pain ---
General Chief Complaint: Chest Wall Stated Complaint: CHEST PAIN Source: patient History of Present Illness Date Seen by Provider: Mar 11, 2021 Time Seen by Provider: 12:47 Initial Comments Patient is a 21-year-old approximately G2, P1, approximately 12-week patient who presents with chest pain at night and after eating. Pain is constant rated mild to moderate. Patient took Tylenol with limited relief. Patient also reports dry cough starting earlier today along with chest wall pain. No fever chills or sweats. No nausea vomiting vomiting. No abdominal pain. No urinary frequency urgency or dysuria. No other acute symptoms or complaints. No leg pain or swelling. No history of DVT or PE. Timing/Duration: 4-6 hours Severity/Quality: mild Location: substernal Radiation: no radiation Associated Symptoms: denies symptoms Allergies and Home Medications Allergies Coded Allergies: hydrocodone (Verified Allergy, Unknown, 07/24/19) Home Medications Benzonatate 100 Mg Capsule, 100 MG PO Q6H PRN for COUGH Prescribed by: FRANCIS ALEXANDRE on 07/24/19 1647 Cephalexin 500 Mg Capsule, 500 MG PO TID Prescribed by: MITESH DEAN on 01/18/21 0320 Patient Home Medication List Home Medication List Reviewed: Yes Review of Systems Review of Systems Constitutional: see HPI EENTM: See HPI Respiratory: See HPI Gastrointestinal: See HPI Genitourinary: See HPI Musculoskeletal: see HPI Psychiatric/Neurological: See HPI Endocrine: See HPI Hematologic/Lymphatic: See HPI Past Vheanul-Tawxbo-Odqftb Hx Immunizations Up To Date PED Vaccines UTD: Yes Seasonal Allergies Seasonal Allergies: No Past Medical History Surgeries: Yes Appendectomy, Gallbladder Respiratory: No Cardiac: No Neurological: No Genitourinary: No Gastrointestinal: No Musculoskeletal: No Endocrine: No HEENT: No Cancer: No Psychosocial: No Integumentary: No Blood Disorders: No Physical Exam Vital Signs Vital Signs - First Documented 03/11/21 12:34 Temp 36.4 Pulse 107 Resp 14 B/P (MAP) 114/56 (75) Pulse Ox 97 O2 Delivery Room Air Capillary Refill : Height, Weight, BMI Height: '" Weight: lbs. oz. kg; 18.00 BMI Method: General Appearance: No Apparent Distress, WD/WN, Anxious HEENT: PERRL/EOMI, Normal ENT Inspection, Pharynx Normal Neck: Full Range of Motion, Normal Inspection, Supple Respiratory: Lungs Clear, Other (Parasternal chest wall pain reproducing pain complaint) Cardiovascular: Tachycardia Gastrointestinal: Non Tender, Soft Focused Exam Sepsis Stage: Ruled Out Progress/Results/Core Measures Results/Orders Lab Results Laboratory Tests Test 03/11/21 12:37 03/11/21 13:55 Range/Units White Blood Count 21.8 H 4.3-11.0 10^3/uL Red Blood Count 3.41 L 4.35-5.85 10^6/uL Hemoglobin 11.1 L 11.5-16.0 G/DL Hematocrit 32 L 35-52 % Mean Corpuscular Volume 93 80-99 FL Mean Corpuscular Hemoglobin 33 25-34 PG Mean Corpuscular Hemoglobin Concent 35 32-36 G/DL Red Cell Distribution Width 12.3 10.0-14.5 % Platelet Count 169 130-400 10^3/uL Mean Platelet Volume 11.7 H 7.4-10.4 FL Immature Granulocyte % (Auto) 1 % Neutrophils (%) (Auto) 96 H 42-75 % Lymphocytes (%) (Auto) 1 L 12-44 % Monocytes (%) (Auto) 3 0-12 % Eosinophils (%) (Auto) 0 0-10 % Basophils (%) (Auto) 0 0-10 % Neutrophils # (Auto) 20.8 H 1.8-7.8 X 10^3 Lymphocytes # (Auto) 0.2 L 1.0-4.0 X 10^3 Monocytes # (Auto) 0.6 0.0-1.0 X 10^3 Eosinophils # (Auto) 0.0 0.0-0.3 10^3/uL Basophils # (Auto) 0.0 0.0-0.1 10^3/uL Immature Granulocyte # (Auto) 0.1 0.0-0.1 10^3/uL Neutrophils % (Manual) 66 % Lymphocytes % (Manual) 2 % Monocytes % (Manual) 3 % Band Neutrophils 29 % Blood Morphology Comment NORMAL Sodium Level 135 135-145 MMOL/L Potassium Level 3.4 L 3.6-5.0 MMOL/L Chloride Level 103 98-107 MMOL/L Carbon Dioxide Level 16 L 21-32 MMOL/L Anion Gap 16 H 5-14 MMOL/L Blood Urea Nitrogen 6 L 7-18 MG/DL Creatinine 0.69 0.60-1.30 MG/DL Estimat Glomerular Filtration Rate 106 BUN/Creatinine Ratio 9 Glucose Level 146 H 70-105 MG/DL Calcium Level 8.3 L 8.5-10.1 MG/DL Corrected Calcium 8.7 8.5-10.1 MG/DL Total Bilirubin 0.7 0.1-1.0 MG/DL Aspartate Amino Transf (AST/SGOT) 13 5-34 U/L Alanine Aminotransferase (ALT/SGPT) 8 0-55 U/L Alkaline Phosphatase 37 L 40-136 U/L Total Protein 6.0 L 6.4-8.2 GM/DL Albumin 3.5 3.2-4.5 GM/DL Urine Color DARK YELLOW Urine Clarity CLOUDY H Urine pH 5.5 5-9 Urine Specific [place] >=1.030 1.016-1.022 Urine Protein NEGATIVE NEGATIVE Urine Glucose (UA) TRACE H NEGATIVE Urine Ketones 1+ H NEGATIVE Urine Nitrite NEGATIVE NEGATIVE Urine Bilirubin NEGATIVE NEGATIVE Urine Urobilinogen 0.2 < = 1.0 MG/DL Urine Leukocyte Esterase TRACE H NEGATIVE Urine RBC (Auto) NEGATIVE NEGATIVE Urine RBC NONE /HPF Urine WBC 5-10 H /HPF Urine Squamous Epithelial Cells 5-10 /HPF Urine Crystals NONE /LPF Urine Bacteria FEW H /HPF Urine Casts NONE /LPF Urine Mucus MODERATE H /LPF Urine Culture Indicated YES My Orders Orders - CONSTANCE KHAN DO Antacid Suspension (Mylanta Suspension (03/11/21 12:45) Ekg-Prn For Chest Pain Or Rhyt (03/11/21 12:46) Chest 1 View Ap/Pa Only (03/11/21 12:46) Cbc With Automated Diff (03/11/21 13:01) Comprehensive Metabolic Panel (03/11/21 13:01) Manual Differential (03/11/21 12:37) Urinalysis (03/11/21 13:49) Urine Culture (03/11/21 13:55) Ceftriaxone (Rocephin) (03/11/21 14:45) Medications Given in ED Current Medications Medications Dose Ordered Sig/Venkata Route Start Time Stop Time Status Last Admin Dose Admin Al Hydrox/Mg Hydrox/Simethicone 30 ml ONCE ONCE PO 03/11/21 12:45 03/11/21 12:47 DC 03/11/21 12:48 30 ML Vital Signs/I&O 03/11/21 12:34 Temp 36.4 Pulse 107 Resp 14 B/P (MAP) 114/56 (75) Pulse Ox 97 O2 Delivery Room Air Departure Communication (Admissions) Chest x-ray: No acute cardiopulmonary disease. Atypical chest pain with parasternal chest tenderness and dry cough today re producing complaint. Chest pain is worse after eating. Patient also noted to be tachycardic with elevated white blood cell count with left shift. IV fluids continued from EMS. IV antibiotics given for treatment of urinary tract infection. Patient's chest pain did resolve treatment of Maalox. heart tones noted to be present. 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 Return precautions reviewed. Patient verbalizes understanding agreement discharge instructions prior to departure. Impression Primary Impression: Chest wall pain Additional Impressions: Urinary tract infection Esophagitis Disposition: HOME, SELF-CARE Condition: Stable Departure-Patient Inst. Decision time for Depature: 14:43 Referrals: [facility] (PCP) Primary Care Physician JOLANTA CAMPBELL APRN (Family) Primary Care Physician Patient Instructions: Chest Pain, Urinary Tract Infection, Adult ED, Acid Reflux (Gastroesophageal Reflux Disease) During Add. Discharge Instructions: Please increase daily fluids and take newly prescribed medications as directed and follow-up with your PCP or MIRROR FINISHING MACHINE OPERATOR in 2 to 3 days for reevaluation. Discontinue Macrobid. Return to the ED if new or worsening symptoms All discharge instructions reviewed with patient and/or family. Voiced understanding. Scripts Famotidine (Pepcid) 20 Mg Tablet 20 MG PO BID, #60 TAB Prov: CONSTANCE KHAN DO 03/11/21 Cephalexin (Cephalexin) 500 Mg Tablet 500 MG PO TID, #21 TAB Prov: CONSTANCE KHAN DO 03/11/21 CONSTANCE KHAN DO Mar 11, 2021 12:59
[2021-03-11 13:17] LABS: BASOPHILS % (AUTO) 0 % (0-10); EOSINOPHILS % (AUTO) 0 % (0-10); HEMATOCRIT 32 % (35-52); HEMOGLOBIN 11.1 G/DL (11.5-16.0); LYMPHOCYTES # (AUTO) 0.2 X 10^3 (1.0-4.0); LYMPHOCYTES % (AUTO) 1 % (12-44); MEAN CORPUSCULAR HEMOGLOBIN 33 PG (25-34); MEAN CORPUSCULAR HGB CONC 35 G/DL (32-36); MEAN CORPUSCULAR VOLUME 93 FL (80-99); MEAN PLATELET VOLUME 11.7 FL (7.4-10.4); MONOCYTES # (AUTO) 0.6 X 10^3 (0.0-1.0); MONOCYTES % (AUTO) 3 % (0-12); NEUTROPHILS # (AUTO) 20.8 X 10^3 (1.8-7.8); NEUTROPHILS % (AUTO) 96 % (42-75); PLATELET COUNT 169 10^3/uL (130-400); WHITE BLOOD COUNT 21.8 10^3/uL (4.3-11.0)
[2021-03-11 13:27] LABS: BAND NEUTROPHILS 29 %; LYMPHOCYTES % (MANUAL) 2 %; MONOCYTES % (MANUAL) 3 %; NEUTROPHILS % (MANUAL) 66 %; RBC MORPH NORMAL
[2021-03-11 13:28] LABS: ALBUMIN 3.5 GM/DL (3.2-4.5); BILIRUBIN,TOTAL 0.7 MG/DL (0.1-1.0); CALCIUM 8.3 MG/DL (8.5-10.1); CREATININE SERUM 0.69 MG/DL (0.60-1.30); POTASSIUM 3.4 MMOL/L (3.6-5.0)
--- NOTE | 2021-03-11 13:41 | Diagnostic Imaging Report ---
INDICATION: Chest pain. FINDINGS: The heart size, mediastinal configuration, and pulmonary vascularity are within normal limits. There is no pleural effusion, pneumothorax, or pneumonia. The osseous structures are unremarkable. IMPRESSION: No acute cardiopulmonary abnormality. Dictated by: Dictated on workstation # [id number]
[2021-03-11 14:25] LABS: CLARITY,URINE CLOUDY; COLOR,URINE DARK YELLOW; GLUCOSE, URINE (UA) TRACE (NEGATIVE); KETONES,URINE 1+ (NEGATIVE); PH,URINE 5.5 (5-9); PROTEIN,URINE NEGATIVE (NEGATIVE)
[2021-03-11 14:26] LABS: BACTERIA,URINE FEW /HPF; BILIRUBIN,URINE NEGATIVE (NEGATIVE); LEUKOCYTE ESTERASE ,URINE TRACE (NEGATIVE); NITRITE,URINE NEGATIVE (NEGATIVE)
[2021-03-11] MEDS ORDERED: cefTRIAXone 1,000 MG in WATER (STERILE) FOR INJECTION 10 ML IV ONE (14:45)
[2021-03-11] MEDS ORDERED: CEPH500T PO (14:47)
[2021-03-11] MEDS ORDERED: FAMO-119 PO (14:47)
[2021-03-11 14:52] VITALS: BP 101/61
== END 2021-03-11 14:53 | disposition home or self-care (01) ==
LOC: EDUNIT# 12:34 → ER FS 12:36
DX: O99.611 Diseases of the digestive system complicating pregnancy, first trimester (principal); K21.00 Gastro-esophageal reflux disease with esophagitis, without bleeding; O23.41 Unspecified infection of urinary tract in pregnancy, first trimester; O99.111 Other diseases of the blood and blood-forming organs and certain disorders involving the immune mechanism complicating pregnancy, first trimester; D72.829 Elevated white blood cell count, unspecified; Z90.49 Acquired absence of other specified parts of digestive tract; Z3A.12 12 weeks gestation of pregnancy
CPT/HCPCS: 36415; 71045; 80053; 81000; 85007; 85027; 87088; 93005; 96374

== ENCOUNTER 2021-09-06 20:44 | Outpatient (CLI) | payer MEDICAID ==
[~2021-09-06 20:44] MED LIST changes: +CEPH500T PO; +FAMO-119 PO
[2021-09-06] MEDS ORDERED: LEVO25CA4 PO (20:55)
[2021-09-06] MEDS ORDERED: [UNRECOGNIZED DRUG - CODE] PO (20:56)
[2021-09-06] MEDS ORDERED: PREN-37 PO (20:57)
[2021-09-06 21:13] LABS: CLARITY,URINE CLEAR; COLOR,URINE ORANGE; GLUCOSE, URINE (UA) NEGATIVE (NEGATIVE); KETONES,URINE 1+ (NEGATIVE); LEUKOCYTE ESTERASE ,URINE TRACE (NEGATIVE); NITRITE,URINE NEGATIVE (NEGATIVE); PROTEIN,URINE NEGATIVE (NEGATIVE)
[2021-09-06 21:20] LABS: BACTERIA,URINE FEW /HPF; BILIRUBIN,URINE 1+ (NEGATIVE)
[2021-09-06 21:23] VITALS: BP 110/73
[2021-09-06 21:26] VITALS: BP 110/73
[2021-09-06 21:46] VITALS: BP 110/73
--- NOTE | 2021-09-09 08:13 | Physician Query-Final Dx ---
Clinic Account Progress/Dx Physician Query: Please give diagnosis Please include # weeks gestation Date of Service Sep 06, 2021 at 20:44 [place],AugSep 09, 2021 08:13
== END 2021-09-06 22:23 | disposition home or self-care (01) ==
LOC: LDRP 20:44 → WSo 20:44
PROVIDERS: ATTEND Family Medicine
DX: O62.9 Abnormality of forces of labor, unspecified (principal); Z3A.00 Weeks of gestation of pregnancy not specified
CPT/HCPCS: 81000; G0463; 99213

== ENCOUNTER 2021-09-16 21:00 | Inpatient (IN) | payer MEDICAID ==
[~2021-09-16] VITALS: Ht 162.6 cm; Wt 65.1 kg
[~2021-09-16 21:00] MED LIST changes: +LEVO25CA4 PO; +PREN-37 PO; +[UNRECOGNIZED DRUG - CODE] PO
[2021-09-16 21:44] VITALS: BP 110/70
[2021-09-16 21:58] LABS: BILIRUBIN,URINE NEGATIVE (NEGATIVE); CLARITY,URINE CLEAR; COLOR,URINE YELLOW; GLUCOSE, URINE (UA) NEGATIVE (NEGATIVE); KETONES,URINE NEGATIVE (NEGATIVE); LEUKOCYTE ESTERASE ,URINE NEGATIVE (NEGATIVE); NITRITE,URINE NEGATIVE (NEGATIVE); PROTEIN,URINE NEGATIVE (NEGATIVE)
[2021-09-16 22:04] LABS: AMORPHOUS SEDIMENT,UR RARE AMOR URATES /LPF; BACTERIA,URINE TRACE /HPF; WBC,URINE RARE /HPF
[2021-09-16] MEDS ORDERED: ZOLPIDEM 5 MG (AMBIEN) TAB ONE (22:50)
[2021-09-16] MEDS ORDERED: D5 LR IV SOLUTION 1,000 ML IV ONE (22:51)
[2021-09-16] MEDS ORDERED: ZOLPIDEM 5 MG (AMBIEN) TAB PO PRN (23:00)
[2021-09-16] MEDS ORDERED: MINERAL OIL 30 ML OIL TOP PRN (23:15)
[2021-09-16] MEDS ORDERED: AMPICILLIN FOR IV USE 2,000 MG in NS (IVPB) 50 ML IV SCH (23:59)
[2021-09-17] VITALS (39 sets, daily range): BP systolic 88–131; BP diastolic 50–89
[2021-09-17] MEDS: D5 LR IV SOLUTION 1,000 ML IV SCH ×2 (00:27→09:13)
[2021-09-17 01:02] LABS: BASOPHILS % (AUTO) 0 % (0-10); EOSINOPHILS % (AUTO) 0 % (0-10); HEMATOCRIT 34 % (35-52); HEMOGLOBIN 11.7 g/dL (11.5-16.0); LYMPHOCYTES % (AUTO) 27 % (12-44); MEAN CORPUSCULAR HEMOGLOBIN 33 pg (25-34); MEAN CORPUSCULAR HGB CONC 34 g/dL (32-36); MEAN CORPUSCULAR VOLUME 95 fL (80-99); MEAN PLATELET VOLUME 11.6 fL (9.0-12.2); MONOCYTES # (AUTO) 0.6 10^3/uL (0.0-1.0); MONOCYTES % (AUTO) 8 % (0-12); NEUTROPHILS # (AUTO) 4.6 10^3/uL (1.8-7.8); NEUTROPHILS % (AUTO) 64 % (42-75); PLATELET COUNT 199 10^3/uL (130-400); WHITE BLOOD COUNT 7.2 10^3/uL (4.3-11.0)
[2021-09-17] MEDS: AMPICILLIN FOR IV USE 1,000 MG in NS (IVPB) 50 ML IV SCH ×4 (04:12→19:21)
[2021-09-17] MEDS ORDERED: CATHETER FLUSH 10 ML SYR IV SCH ×2 (06:00→14:00)
[2021-09-17] MEDS ORDERED: fentaNYL 2 mcg/ml BUPIVA 0.125 100 ML ONE (08:48)
--- NOTE | 2021-09-17 09:02 | History & Physical-OB ---
OB - Chief Complaint & HPI Date/Time Date of Admission: Date of Admission: Sep 16, 2021 at 22:23 Date seen by a Provider: Sep 17, 2021 Time Seen by a Provider: 07:15 Chief Complaint/History OB-Reason for Admission/Chief: Onset of Labor Hx : 2 Hx Para: 1 Expected Date of Delivery: Sep 20, 2021 Gestational Age in Weeks: 39 Gestational Age in Days: 3 History of Labs A neg, Ab neg, Rub Imm HIV/RPR/HepB/C NR GC/Chyl neg Normal 1 hr GTT GBS Positive Allergies and Home Medications Allergies Coded Allergies: hydrocodone (Verified Allergy, Unknown, 07/24/19) latex (Verified Allergy, Unknown, Hives, 09/06/21) Patient Home Medication List Home Medication List Reviewed: Yes Lactase (Lactaid) 3,000 Unit Tablet, 3,000 UNIT PO DAILY, (Reported) Entered as Reported by: VINCENT HOLDEN on 09/06/212055 Last Action: Reviewed Levothyroxine Sodium (Levothyroxine) 25 Mcg Capsule, 37.5 MCG PO DAILY, (Reported) Entered as Reported by: VINCENT HOLDEN on 09/06/212054 Last Action: Reviewed Vit/Iron Fumarate/FA ( Tablet) 1 Each Tablet, 1 EACH PO DAILY, (Reported) Entered as Reported by: VINCENT HOLDEN on 09/06/212056 Last Action: Reviewed OB - History Hx of Present Care: Yes Ultrasounds: Normal mid trimester US Obstetrical Complications: None Medical Complications: None Obstetrical History Hx : 2 Hx Para: 1 Hx # Term Pregnancies: 1 Number of Living Children: 1 Patient Past Medical History Depression Social History/Family History 2nd Hand Smoke Exposure: No Immunizations Influenza Vaccine Up-to-Date: No; Not Current Tetanus Booster (TDap): Less than 5yrs Rubella: immune RPR/VDRL: Negative GBS Status: Positive HBsAG: Negative OB - Admission Exam Physical Exam Vitals: Vital Signs 09/17/21 07:45 Temp 37.3 Pulse 90 Resp 18 B/P (MAP) 109/64 (79) Pulse Ox 99 O2 Delivery Room Air HEENT: NCAT Heart: Rhythm Normal Lungs: Clear Abdomen: Gravid Cervical Dilatation: 5cm Effacement: 75% Station: -2 Membranes: Intact Accelerations: Accelerations Present Decelerations: No Decelerations Contractions on Admission: < 5 Minutes Apart Intensity: Firm Labs Laboratory Tests Test 09/16/21 21:40 09/17/21 00:50 Range/Units Urine Color YELLOW Urine Clarity CLEAR Urine pH 6.0 5-9 Urine Specific [place] 1.020 1.016-1.022 Urine Protein NEGATIVE NEGATIVE Urine Glucose (UA) NEGATIVE NEGATIVE Urine Ketones NEGATIVE NEGATIVE Urine Nitrite NEGATIVE NEGATIVE Urine Bilirubin NEGATIVE NEGATIVE Urine Urobilinogen 0.2 < = 1.0 MG/DL Urine Leukocyte Esterase NEGATIVE NEGATIVE Urine RBC (Auto) NEGATIVE NEGATIVE Urine RBC NONE /HPF Urine WBC RARE /HPF Urine Crystals PRESENT H /LPF Urine Amorphous Sediment RARE TINO URATES H /LPF Urine Bacteria TRACE /HPF Urine Casts NONE /LPF Urine Mucus NEGATIVE /LPF Urine Culture Indicated NO White Blood Count 7.2 4.3-11.0 10^3/uL Red Blood Count 3.60 L 3.80-5.11 10^6/uL Hemoglobin 11.7 11.5-16.0 g/dL Hematocrit 34 L 35-52 % Mean Corpuscular Volume 95 80-99 fL Mean Corpuscular Hemoglobin 33 25-34 pg Mean Corpuscular Hemoglobin Concent 34 32-36 g/dL Red Cell Distribution Width 12.4 10.0-14.5 % Platelet Count 199 130-400 10^3/uL Mean Platelet Volume 11.6 9.0-12.2 fL Immature Granulocyte % (Auto) 0 % Neutrophils (%) (Auto) 64 42-75 % Lymphocytes (%) (Auto) 27 12-44 % Monocytes (%) (Auto) 8 0-12 % Eosinophils (%) (Auto) 0 0-10 % Basophils (%) (Auto) 0 0-10 % Neutrophils # (Auto) 4.6 1.8-7.8 10^3/uL Lymphocytes # (Auto) 2.0 1.0-4.0 10^3/uL Monocytes # (Auto) 0.6 0.0-1.0 10^3/uL Eosinophils # (Auto) 0.0 0.0-0.3 10^3/uL Basophils # (Auto) 0.0 0.0-0.1 10^3/uL Immature Granulocyte # (Auto) 0.0 0.0-0.1 10^3/uL OB - Assessment/Plan/Diagnosis Assessment Assessment: active labor Admission Dx Third trimester 39 week gestation Admission Status: Inpatient Order (span 2 midnights) Reason for Inpatient Admission: Labor Plan Other Plan 21 yo @ 39.3 wga here for active labor Plan GBS positive: Started on ampicillin at midnight she has received 2 doses prior to AROM AROM this AM 0750 clear Expectant management SW consult placed Copy Copies To 1: CHRISTIAN WEAVER MD, HOLLY R MD Sep 17, 2021 09:02
[2021-09-17] MEDS ORDERED: LACTATED RINGERS 1,000 ML IV SCH (09:15)
[2021-09-17] MEDS ORDERED: OXYTOCIN PRE-MIX DRIP 500 ML IV ONE (09:21)
[2021-09-17] MEDS ORDERED: OXYTOCIN PRE-MIX DRIP 500 ML IV SCH ×2 (09:30→13:30)
[2021-09-17] MEDS ORDERED: fentaNYL INJ 100 MCG/2 ML AMP ONE (09:59)
[2021-09-17] MEDS ORDERED: LIDOCAINE PF 2% 5 ML (XYLOCAINE) VIAL ONE (09:59)
[2021-09-17] MEDS ORDERED: BUPIVACAINE 0.5% 30 ML (SENSORCAINE) VIAL ONE (10:41)
[2021-09-17] MEDS ORDERED: METOCLOPRAMIDE INJ 10 MG/2 ML (REGLAN) IV PRN (11:00)
[2021-09-17] MEDS ORDERED: ONDANSETRON 4 MG/2 ML (SDV) Z0FRAN IV PRN (11:00)
[2021-09-17] MEDS ORDERED: NALOXONE 0.4 MG/ML 1 ML (NARCAN) VIAL IV PRN ×2 (11:00)
[2021-09-17] MEDS ORDERED: diphenhydrAMINE 50 MG/ML INJ (BENADRYL) IV PRN (11:00)
[2021-09-17] MEDS ORDERED: EPIDURAL (fentaNYL 2 MCG/ML BUPIVA 0.125%)100 ML BAG EPI PRN (11:00)
[2021-09-17] MEDS: LACTATED RINGERS 1,000 ML IV SCH ×2 (12:04→19:18)
[2021-09-17] MEDS ORDERED: MINERAL OIL CONCENTRATE 99.9% 15 ML UDC ONE (12:36)
--- NOTE | 2021-09-17 13:25 | OB Labor & Delivery Record ---
Vag Delivery Note Vag Delivery Note Date of Delivery: 09/17/21 Preoperative Diagnosis: Sammie Paiz is a (21 /Para 2 / 1,Gestational Age (wks)39.5 wga for active labor Postoperative Diagnosis: Same Surgeon: CHRISTIAN WEAVER MD Last Puller: None Anesthesia: Epidural Delivery Type: @ 1320 Findings: Viable male infant, apgars 8/9, weight 6#10, 3005 grams Lacerations: 1st degree Intact placenta with 3 vessel cord. Nuchal cord x1, body cord or shoulder dystocia Estimated Blood Loss: 150 ml Complications: None Condition: Stable Description of Procedure: The patient is a 21 year old female who presented in active labor. She was admitted and informed consent was obtained. Her labor course was unremarkable. She progressed to complete dilatation and began to push. She was then set up for delivery. The 's head was delivered atraumatically in the ZAHRAA position. The shoulders and remainder of the infant's body were then delivered without difficulty. Upon delivery, the head was held below the level of the perineum and the mouth and nares were bulb suctioned. The cord was doubly clamped and cut by FOB and the infant was placed on maternal abdomen and attended to by the pediatric staff. An intact placenta with 3-vessel cord delivered via Susy and there was found to be minimal bleeding.~ Vigorous fundal massage was performed and the fundus was found to be firm. IV oxytocin was given. Examination of the vagina and perineum revealed a 1st degree laceration repaired in the usual fashion with 3-0 vicryl suture. Following the repair, sponge, instrument and needle counts were correct. Mom and baby were both in stable condition in the labor suite. Vitals - Labs Vital Signs - I&O Vital Signs Date Time Temp Pulse Resp B/P (MAP) Pulse Ox O2 Delivery O2 Flow Rate FiO2 09/17/21 10:00 90 18 108/67 (81) 98 Room Air 09/17/21 09:45 96 18 106/68 (81) 09/17/21 09:30 90 18 114/64 (81) 09/17/21 07:45 37.3 90 18 109/64 (79) 99 Room Air 09/17/21 06:12 36.4 18 09/16/21 21:44 36.1 97 18 98 Room Air 09/16/21 21:44 36.1 97 18 110/70 (83) 98 Room Air Labs Laboratory Tests 09/16/21 21:40: Urine Color YELLOW, Urine Clarity CLEAR, Urine pH 6.0, Urine Specific [place] 1.020, Urine Protein NEGATIVE, Urine Glucose (UA) NEGATIVE, Urine Ketones NEGATIVE, Urine Nitrite NEGATIVE, Urine Bilirubin NEGATIVE, Urine Urobilinogen 0.2, Urine Leukocyte Esterase NEGATIVE, Urine RBC (Auto) NEGATIVE, Urine RBC NONE, Urine WBC RARE, Urine Crystals PRESENTH, Urine Amorphous Sediment RARE TINO URATESH, Urine Bacteria TRACE, Urine Casts NONE, Urine Mucus NEGATIVE, Urine Culture Indicated NO 09/17/21 00:50: White Blood Count 7.2, Red Blood Count 3.60L, Hemoglobin 11.7, Hematocrit 34L, Mean Corpuscular Volume 95, Mean Corpuscular Hemoglobin 33, Mean Corpuscular Hemoglobin Concent 34, Red Cell Distribution Width 12.4, Platelet Count 199, Mean Platelet Volume 11.6, Immature Granulocyte % (Auto) 0, Neutrophils (%) (Au to) 64, Lymphocytes (%) (Auto) 27, Monocytes (%) (Auto) 8, Eosinophils (%) (Auto) 0, Basophils (%) (Auto) 0, Neutrophils # (Auto) 4.6, Lymphocytes # (Auto) 2.0, Monocytes # (Auto) 0.6, Eosinophils # (Auto) 0.0, Basophils # (Auto) 0.0, Immature Granulocyte # (Auto) 0.0 CHRISTIAN WEAVER MD Sep 17, 2021 13:25
[2021-09-17] MEDS ORDERED: TETANUS,DIPTH,PERTUSS P/F (BOOSTRIX) 0.5 ML VIAL IM ONE (13:30)
[2021-09-17] MEDS ORDERED: MEASLES,MUMPS,RUBELLA 1 EA INJ SQ ONE (13:30)
[2021-09-17] MEDS ORDERED: WITCH HAZEL(TUCKS) 40 EA JAR TOP PRN (13:30)
[2021-09-17] MEDS ORDERED: BENZOCAINE/MENTHOL (DERMOPLAST) 56 ML CAN TP PRN (13:30)
[2021-09-17] MEDS ORDERED: IBUPROFEN 600 MG (MOTRIN) TAB PO ONE (15:46)
[2021-09-17] MEDS: IBUPROFEN 600 MG (MOTRIN) TAB PO SCH ×2 (16:24→22:04)
[2021-09-17] MEDS: DOCUSATE SODIUM 100 MG (COLACE) CAP PO SCH (22:04)
[2021-09-18 00:35] VITALS: BP 118/72
[2021-09-18] MEDS: ACETAMINOPHEN 500 MG TAB (TYLENOL) PO SCH ×4 (00:35→21:34)
[2021-09-18 05:01] VITALS: BP 99/55
[2021-09-18] MEDS: IBUPROFEN 600 MG (MOTRIN) TAB PO SCH ×3 (05:03→21:11)
[2021-09-18 07:29] LABS: BASOPHILS % (AUTO) 0 % (0-10); EOSINOPHILS % (AUTO) 0 % (0-10); HEMATOCRIT 34 % (35-52); HEMOGLOBIN 11.2 g/dL (11.5-16.0); LYMPHOCYTES % (AUTO) 14 % (12-44); MEAN CORPUSCULAR HEMOGLOBIN 32 pg (25-34); MEAN CORPUSCULAR HGB CONC 33 g/dL (32-36); MEAN CORPUSCULAR VOLUME 96 fL (80-99); MEAN PLATELET VOLUME 11.9 fL (9.0-12.2); MONOCYTES # (AUTO) 0.7 10^3/uL (0.0-1.0); MONOCYTES % (AUTO) 10 % (0-12); NEUTROPHILS # (AUTO) 5.3 10^3/uL (1.8-7.8); NEUTROPHILS % (AUTO) 75 % (42-75); PLATELET COUNT 157 10^3/uL (130-400); WHITE BLOOD COUNT 7.1 10^3/uL (4.3-11.0)
--- NOTE | 2021-09-18 08:33 | Postpartum Progress Note ---
Note Note Day # 1 Subjective: Patient is without complaints. Ambulating, voiding. Tolerating a regular diet without nausea or vomiting. Normal lochia. Pain is well controlled with oral pain medications. Objective: Vital Signs 09/18/21 05:01 Temp 36.6 Pulse 75 Resp 18 B/P (MAP) 99/55 (70) Pulse Ox 97 O2 Delivery Room Air Physical Exam: General - Alert and oriented, no apparent distress Abdomen - Soft, appropriately tender to palpation, non-distended, fundus firm at umbilicus Extremities - no edema Assessment: post- day # 1, status post spontaneous vaginal delivery. Recovering well, hemodynamically stable Plan: Routine care. Encourage breast feeding. Encourage ambulation. Ferrous sulfate supplementation. Plan for discharge tomorrow Social work consulted due to non-custody of first child Vitals - Labs Vital Signs - I&O Vital Signs Date Time Temp Pulse Resp B/P (MAP) Pulse Ox O2 Delivery O2 Flow Rate FiO2 09/18/21 05:01 36.6 75 18 99/55 (70) 97 Room Air 09/18/21 00:35 37.0 68 18 118/72 (87) 99 Room Air 09/17/21 22:03 36.6 84 18 104/69 (81) 98 Room Air 09/17/21 16:20 80 109/67 (81) 09/17/21 15:00 88 115/53 (73) 09/17/21 14:45 94 107/56 (73) 09/17/21 14:30 98 89/55 (66) 09/17/21 14:15 93 16 96/67 (77) 09/17/21 14:00 94/60 (71) 09/17/21 13:45 77 94/60 (71) 09/17/21 13:30 36.7 83 16 98/63 (75) 09/17/21 12:53 116 131/89 (103) 09/17/21 12:45 85 118/59 (78) 09/17/21 12:23 83 106/70 (82) 100 09/17/21 12:10 83 108/69 (82) 99 09/17/21 11:53 78 16 99/54 (69) 98 09/17/21 11:48 74 93/55 (68) 98 09/17/21 11:43 75 93/57 (69) 99 09/17/21 11:38 77 88/56 (67) 98 09/17/21 11:32 76 92/55 (67) 98 09/17/21 11:25 77 94/56 (69) 99 Room Air 09/17/21 11:21 76 93/55 (68) 98 Room Air 09/17/21 11:15 87 97/50 (66) 98 09/17/21 11:07 104 108/57 (74) 97 09/17/21 11:00 80 104/54 (71) 99 09/17/21 10:54 85 16 117/55 (75) 99 09/17/21 10:43 85 108/60 (76) 98 09/17/21 10:40 78 101/60 (74) 98 Room Air 09/17/21 10:34 79 95/56 (69) 98 Room Air 09/17/21 10:32 81 100/60 (73) 97 Room Air 09/17/21 10:30 85 16 105/64 (78) 98 Room Air 09/17/21 10:27 96 16 104/62 (76) 98 Room Air 09/17/21 10:22 93 116/64 (81) 97 Room Air 09/17/21 10:18 107 112/64 (80) 98 Room Air 09/17/21 10:17 101 120/75 (90) 98 Room Air 09/17/21 10:13 93 121/73 (89) 98 Room Air 09/17/21 10:09 84 16 108/73 (85) 98 Room Air 09/17/21 10:00 90 18 108/67 (81) 98 Room Air 09/17/21 09:45 96 18 106/68 (81) 09/17/21 09:30 90 18 114/64 (81) I & O 09/18/21 06:59 Intake Total 2600 ml Balance 2600 ml Labs Laboratory Tests 09/18/21 06:59: White Blood Count 7.1, Red Blood Count 3.52L, Hemoglobin 11.2L, Hematocrit 34L, Mean Corpuscular Volume 96, Mean Corpuscular Hemoglobin 32, Mean Corpuscular Hemoglobin Concent 33, Red Cell Distribution Width 12.5, Platelet Count 157, Mean Platelet Volume 11.9, Immature Granulocyte % (Auto) 1, Neutrophils (%) (Auto) 75, Lymphocytes (%) (Auto) 14, Monocytes (%) (Auto) 10, Eosinophils (%) (Auto) 0, Basophils (%) (Auto) 0, Neutrophils # (Auto) 5.3, Lymphocytes # (Auto) 1.0, Monocytes # (Auto) 0.7, Eosinophils # (Auto) 0.0, Basophils # (Auto) 0.0, Immature Granulocyte # (Auto) 0.1 SRAVAN AGUILERA MD Sep 18, 2021 08:33
[2021-09-18 08:45] VITALS: BP 101/60
[2021-09-18] MEDS: DOCUSATE SODIUM 100 MG (COLACE) CAP PO SCH ×2 (08:51→21:11)
--- NOTE | 2021-09-18 08:53 | Anesthesia-Regional Post-Op ---
Regional Patient Condition Mental Status: Alert, Oriented x3 Circulation: Same as Pre-Op Headache: Absent Sensation: Full Recovery Motor Block: Absent Post Op Complications Complications None Follow Up Care/Instructions Patient Instructions None needed. Anesthesia/Patient Condition Patient is doing well, no complaints, stable vital signs, no apparent adverse anesthesia problems. No complications reported per nursing. D/C home per [facility] [place] Criteria: No ASHLEY KUO CRNA Sep 18, 2021 08:53
[2021-09-18 13:22] VITALS: BP 98/65
[2021-09-18 17:30] VITALS: BP 97/59
[2021-09-18 20:00] VITALS: BP 111/60
[2021-09-19] MEDS: ACETAMINOPHEN 500 MG TAB (TYLENOL) PO SCH ×4 (00:09→16:10)
[2021-09-19 00:10] VITALS: BP 114/69
[2021-09-19] MEDS: IBUPROFEN 600 MG (MOTRIN) TAB PO SCH ×3 (04:15→16:12)
[2021-09-19 05:55] VITALS: BP 104/63
[2021-09-19] MEDS ORDERED: IBUP-844 PO (07:34)
[2021-09-19 07:45] VITALS: BP 101/68
--- NOTE | 2021-09-19 10:22 | Discharge Summary ---
Discharge Summary Hospital Course Hospital Course Date of Admission: Sep 16, 2021 at 22:23 Admission Diagnosis : Term intrauterine at 39 weeks Family Physician/Provider: Shae Colon MD Date of Discharge: 09/19/21 Discharge Diagnosis: s/p spontaneous vaginal delivery acute blood loss anemia Hospital Course: 21 yo G2 now P2 admitted in labor at 39w2d, delivered via spontaneous vaginal delivery with first degree perineal laceration. course uncomplicated, had asymptomatic mild anemia (hemoglobin 11.2). Labs and Pending Lab Test: Home Meds Active Ibu (Ibuprofen) 600 Mg Tablet 600 Mg PO Q6HR PRN Reported Tablet ( Vit/Iron Fumarate/FA) 1 Each Tablet 1 Each PO DAILY Lactaid (Lactase) 3,000 Unit Tablet 3,000 Unit PO DAILY Levothyroxine (Levothyroxine Sodium) 25 Mcg Capsule 37.5 Mcg PO DAILY Assessment/Pt DC Instructions Follow up with Dr. Colon in 6 weeks for visit. Discharge Diet: Regular Diet Activity as Tolerated: Yes (avoid strenuous activity x 6 weeks, nothing in vagina for 6 weeks) Discharge Physical Examination Allergies: Coded Allergies: hydrocodone (Verified Allergy, Unknown, 07/24/19) latex (Verified Allergy, Unknown, Hives, 09/06/21) General Appearance: No Apparent Distress, WD/WN Respiratory: Lungs Clear, Normal Breath Sounds Cardiovascular: Regular Rate, Rhythm, No Murmur Extremity: No Pedal Edema Skin: Normal Color, Warm/Dry Neurologic/Psychiatric: Alert, Normal Mood/Affect SRAVAN AGUILERA MD Sep 19, 2021 10:22
[2021-09-19] MEDS: DOCUSATE SODIUM 100 MG (COLACE) CAP PO SCH (11:14)
[2021-09-19 12:30] VITALS: BP 115/64
[2021-09-19] MEDS ORDERED: MEASLES,MUMPS,RUBELLA 1 EA INJ ONE (13:04)
[2021-09-19 16:30] VITALS: BP 100/64
== END 2021-09-19 17:35 | disposition home or self-care (01) | DRG 806 ==
LOC: LDRP 21:00 → WSo 21:00 → LDRP 22:23
PROVIDERS: ADMIT Family Medicine; ATTEND Family Medicine
PROC: 10E0XZZ Delivery of Products of Conception, External Approach (ICD-10-PCS; principal; 2021-09-17)
PROC: 0HQ9XZZ Repair Perineum Skin, External Approach (ICD-10-PCS; 2021-09-17)
DX: O99.824 Streptococcus B carrier state complicating childbirth (principal); D62 Acute posthemorrhagic anemia; Z37.0 Single live birth; O70.0 First degree perineal laceration during delivery; O69.81X0 Labor and delivery complicated by cord around neck, without compression, not applicable or unspecified; O90.81 Anemia of the puerperium; Z3A.39 39 weeks gestation of pregnancy; Z23 Encounter for immunization; Z88.5 Allergy status to narcotic agent; Z91.040 Latex allergy status
CPT/HCPCS: 36415; 81000; 83033; 85025; 86850; 86900; 86901; 90707